=== PATIENT | female | born 1965 | race Caucasian/White ===

== ENCOUNTER 2024-02-28 09:34 | Emergency (ER) | payer MEDICARE, OTHER ==
[~2024-02-28] VITALS: Ht 170.2 cm; Wt 59.0 kg
[2024-02-28 10:26] VITALS: BP 153/94; PULSE 83; RESP 17; TEMP 97.5; O2SAT 97
[2024-02-28] MEDS: KETOROLAC TROMETH 30 MG/ML 1ML VIAL IM ONE (11:15)
[2024-02-28] MEDS: TETANUS-DIPTH-ACEL PERTUSSIS 0.5ML SYR Tdap IM ONE (11:15)
[2024-02-28] MEDS ORDERED: IBUP-1454 PO (11:51)
== END 2024-02-28 11:57 | disposition home or self-care (01) ==
LOC: ER 09:34 → EDBD 09:34 → ER 11:56
DX: S91.302A Unspecified open wound, left foot, initial encounter (principal); Z88.8 Allergy status to other drugs, medicaments and biological substances; Z88.0 Allergy status to penicillin; W22.8XXA Striking against or struck by other objects, initial encounter; Y93.89 Activity, other specified; Y92.89 Other specified places as the place of occurrence of the external cause; Y99.8 Other external cause status
CPT/HCPCS: 73630; 90471; 90715; 96372; 99284; J1885

== ENCOUNTER 2024-07-13 01:08 | Emergency (ER) | payer MEDICARE ==
[~2024-07-13] VITALS: Ht 170.2 cm; Wt 69.0 kg
[~2024-07-13 01:08] MED LIST: IBUP-1454 PO
[2024-07-13] MEDS: HYDROcodone-ACET 5/325MG TAB PO ONE (01:57)
--- NOTE | 2024-07-13 01:59 | ED.PDOC ---
Back pain HPI HPI Comments THIS IS A 59-YEAR-OLD FEMALE PRESENTS TO THE ED CHIEF COMPLAINT RIGHT FOOT PAIN. PATIENT STATES AROUND 2 DAYS AGO SHE WAS IN [place] WALKING DOWN THE STAIRS GOT A RIGHT FOOT JAMMED IN BETWEEN THE CONCRETE STAIR AND FELT A CRACK IN HER RIGHT FOOT LATERAL ASPECT. PATIENT REPORTS FOLLOW UP AT URGENT CARE, NO IMAGING DONE BECAUSE NO IMAGING CAPABILITIES AT THAT TIME WAS TOLD TO FOLLOW UP FOR IMAGING. SHE IS COMPLAINING OF PRESSURE TYPE PAIN SHARP IN NATURE WORSE WITH WEIGHT- BEARING 8/10 ON PAIN SCALE. SHE DENIES ANY NUMBNESS OR WEAKNESS, OR ANY OTHER KNOWN INJURY AT THIS TIME. Chief Complaint: Lower Extremity Time Seen by MD: 01:09 Primary Care Provider: NONE Reviewed Notes: Nurses Notes, Medications, Allergies Allergies: Coded Allergies: Diphenhydramine (Verified Allergy, Unknown, 02/28/24) Penicillins (Verified Allergy, Unknown, 02/28/24) Home Meds Active Scripts Ibuprofen (Ibuprofen) 600 Mg Tab, 1 TAB PO TIDP PRN for 14 Days, #42 TAB 0 Refills Prov:MILLERRONEL RN INTERVENTIONAL 02/28/24 Information Source: Patient Mode of Arrival: Ambulatory Past Medical History PAST MEDICAL HISTORY: Denies Surgical History: Denies all surgeries HOSPITAL CLINIC ASSISTANT History: No Pertinent HOSPITAL CLINIC ASSISTANT History Family History Family History: Reviewed,noncontributory to illness, No family hx of Cancer, No family hx of DM, No family hx of Heart bong, No family hx of HTN, No family hx ofKidney bong, No family hx of Liver bong, No family hx of Lung bong, No family hx of Stroke Social History Smoker: Non-Smoker Alcohol: Denies ETOH Use Drugs: Denies Drug Use Constitutional: denies: chills, diaphoresis, fatigue, fever, malaise, sweats, weakness, others EENTM: denies: blurred vision, double vision, ear bleeding, ear discharge, ear drainage, ear pain, ear ringing, eye pain, eye redness, hearing loss, mouth pain, mouth swelling, nasal discharge, nose bleeding, nose congestion, nose pain, photophobia, tearing, throat pain, throat swelling, voice changes, others Respiratory: denies: cough, hemoptysis, orthopnea, SOB at rest, shortness of breath, SOB with excertion, stridor, wheezing, others Cardiovascular: denies: chest pain, dizzy spells, diaphoresis, Dyspnea on exertion, edema, irregular heart beat, left arm pain, lightheadedness, palpitations, PND, syncope, others Gastrointestinal: denies: abdomen distended, abdominal pain, blood streaked bowels, constipated, diarrhea, dysphagia, difficulty swallowing, hematemesis, melena, nausea, poor appetite, poor fluid intake, rectal bleeding, rectal pain, vomiting, others Genitourinary: denies: abnormal vagina bleeding, burning, dyspareunia, dysuria, flank pain, frequency, hematuria, incontinence, pain, , vagina discharge, urgency, others Neurological: denies: dizziness, fainting, headache, left sided numbness, left sided weakness, numbness, paresthesia, pre-existing deficit, right sided numbness, right sided weakness, seizure, speech problems, tingling, tremors, weakness, others Musculoskeletal: reports: others (RIGHT FOOT PAIN); denies: back pain, gout, joint pain, joint swelling, muscle pain, muscle stiffness, neck pain Integumetry: denies: bruises, change in color, change in hair/nails, dryness, laceration, lesions, lumps, rash, wounds, others Allergic/Immunocompromised: denies: Difficulty Healing, Frequent Infections, Hives, Itching, others Hematologic/Lymphatic: denies: anemia, blood clots, easy bleeding, easy bruising, swollen glands, others Endocrine: denies: excessive hunger, excessive sweating, excessive thirst, excessive urination, flushing, intolerance to cold, intolerance to heat, unexplained weight gain, unexplained weight loss, others Psychiatric: denies: anxiety, bipolar disorder, depression, hopeless, panic disorder, schizophrenia, sleepless, suicidal, others Physical Exam General Appearance: No Apparent Distress, Normal HEENT: Pharynx Normal Neck: Full Range of Motion, Non-Tender Respiratory: Lungs Clear, No Respiratory Distress, Normal Breath Sounds Cardiovascular: No Murmur, Normal Peripheral Pulses, Regular Rate/Rhythm Breast Exam: Deferred Gastrointestinal: Non Tender, Soft Genitalia: Deferred Pelvic: Deferred Rectal: Deferred Extremities: Normal capillary refill, Normal inspection, Normal range of motion, Non-tender, No pedal edema Musculoskeletal : Location: Right Extremity Location: Foot (MODERATE TENDERNESS PALPATED OVER DORSAL LATERAL ASPECT WITH NOTED EDEMA TRACE ECCHYMOSIS FELT LACERATIONS OR ABRASIONS OR OPEN LESIONS. POSITIVE PEDAL PULSE STRENGTH SENSORY AND MOTION INTACT. NO NOTED DEFORMITY OR BONE PROMINENCE.) Apperance: Normal Neurologic: Alert, design studio consultant II-XII nml as Tested, No Motor Deficits, Normal Affect, Normal Mood, No Sensory Deficits Cerebellar Function: Normal Reflexes: Normal Skin: Dry, Normal Color, Warm Lymphatic: No Adenopathy Was a procedure done? Was a procedure done?: No Back Pain Differential Dx Differential Diagnosis: Fracture, Musculoskeletal Pain X-Ray, Labs, Meds, VS Vital Signs Date Time Temp Pulse Resp B/P (MAP) Pulse Ox O2 Delivery O2 Flow Rate FiO2 07/13/24 02:56 97.5 81 17 135/81 (99) 96 97.5 07/13/24 02:56 81 17 96 Room Air 07/13/24 01:16 97.5 95 16 158/81 (106) 98 Current Medications Medications (Trade) Dose Ordered Sig/Tra Route Start Time Stop Time Status Last Admin Acetaminophen/ Hydrocodone Bitart ([place] 5/325MG Tab) 1 tab ONCE ONCE PO 07/13/24 02:00 07/13/24 02:01 DC 07/13/24 01:57 X-Ray, Labs, Meds, VS Comment PATIENT GIVEN NORCO 5 MG FOR THE PAIN. RIGHT FOOT X-RAY SHOWS Linear non-displaced fracture involving the base of the 5th metatarsal, with mild associated soft tissue edema. PATIENT PLACED IN POSTERIOR FOOT SPLINT. TOLERATED WELL POSITIVE CSM ON RE-E XAMINATION. INFORMATION GIVEN FOR ORTHO FOOT [facility] FOR FOLLOW UP. SCRIPT IBUPROFEN 800 MG 1 TAB T.I.D. P.R.N. PAIN SWELLING. ADVISED ON RICE. ADVISED TO GET A SCOOTER CRUTCHES GIVEN ADVISED NO WEIGHT-BEARING. ER RETURN PRECAUTIONS GIVEN PATIENT INDICATED UNDERSTANDING, AGREES WITH DISCHARGE PLAN OF CARE. Time of 1ST Reevaluation: 04: Reevaluation 1ST: Improved Patient Education/Counseling: Diagnosis, Treatment, Prognosis, Need For Follow Up Family Education/Counseling: Diagnosis, Treatment, Prognosis, Need For Follow Up Departure 1 Departure Time of Disposition: 04:22 Impression: Primary Impression: Fracture of fifth metatarsal bone of right foot Qualified Codes: S92.354A - Nondisplaced fracture of fifth metatarsal bone, right foot, initial encounter for closed fracture Disposition: HOME / SELF CARE / HOMELESS Condition: Stable e-Prescriptions Ibuprofen (Ibuprofen) 800 Mg Tab 1 TAB PO TID PRN for 7 Days, #21 TAB 1 Refill Prov: ASHLEY MARLEY 07/13/24 Discharged With: Friend Critical Care Note Critical Care Time?: No Stability Stability form required: ASHLEY Kumar Jul 13, 2024 01:59
[2024-07-13 02:56] VITALS: BP 135/81; PULSE 81; RESP 17; TEMP 97.5; O2SAT 96
--- NOTE | 2024-07-13 03:52 | DVH ---
Examination: RFOOT Clinical Indication: INJURY/PAIN/SWELLING LATERAL ASPECT Comparison: None. Technique: AP, lateral and oblique views of the right foot. Findings: Linear non-displaced fracture involving the base of the 5th metatarsal, with mild associated soft tis danae edema. No other acute osseous abnormality or focal osseous lesion. There is no evidence of dislocation or osseous lesion. The sesamoid complex is well approximated. T he joint spaces appear preserved. Tarsal bones are well aligned. Impression: 1. Linear non-displaced fracture involving the base of the 5th metatarsal, with mild associated soft tissue edema. 2. No other acute osseous abnormality or focal osseous lesion. Electronically Signed 07/13/2024 03:43 Jose Quintero
[2024-07-13] MEDS ORDERED: IBUP-1456 PO (04:23)
== END 2024-07-13 04:48 | disposition home or self-care (01) ==
LOC: ER 01:08
DX: S92.354A Nondisplaced fracture of fifth metatarsal bone, right foot, initial encounter for closed fracture (principal); Z88.0 Allergy status to penicillin; Z88.6 Allergy status to analgesic agent; X58.XXXA Exposure to other specified factors, initial encounter; Y93.89 Activity, other specified; Y92.89 Other specified places as the place of occurrence of the external cause; Y99.8 Other external cause status
CPT/HCPCS: 29515; 73630

== ENCOUNTER 2024-07-24 15:41 | Emergency (ER) | payer MEDICARE ==
[~2024-07-24] VITALS: Ht 170.2 cm; Wt 78.0 kg
[~2024-07-24 15:41] MED LIST changes: -IBUP-1454 PO; +IBUP-1456 PO
[2024-07-24 15:58] VITALS: BP 171/105; PULSE 107; RESP 18; TEMP 97.4; O2SAT 97
[2024-07-24] MEDS ORDERED: HYDROcodone-ACET 5/325MG TAB PO ONE (16:15)
--- NOTE | 2024-07-24 16:15 | ED.PDOC ---
Back pain HPI HPI Comments right foot pain Chief Complaint: Lower Extremity Comments pt has a Mike's fracture from before . she sees ortho in AM, but fell again and injured same foot this morning Time Seen by MD: 15:51 Primary Care Provider: NONE Reviewed Notes: Nurses Notes Allergies: Coded Allergies: Diphenhydramine (Verified Allergy, Unknown, 02/28/24) Penicillins (Verified Allergy, Unknown, 02/28/24) Home Meds Active Scripts Ibuprofen (Ibuprofen) 800 Mg Tab, 1 TAB PO TID PRN for 7 Days, #21 TAB 1 Refill Prov:ASHLEY MARLEY MUSICAL THERAPIST 07/13/24 Information Source: Patient, Relative (Mother) Mode of Arrival: Ambulatory Timing: Days (1) Duration: Since onset Severity: Mild Prehospital treatment: Other (splint) Onset: Fall History of: Other (recent Mike's fracture) Modifying Factors: Movement, Walking Past Medical History Past Medical History (Other): mike's fracture of right foot Surgical History: Denies all surgeries CAR CHASER History: No Pertinent CAR CHASER History Family History Family History: Reviewed,noncontributory to illness, No family hx of Cancer, No family hx of DM, No family hx of Heart bong, No family hx of HTN, No family hx ofKidney bong, No family hx of Liver bong, No family hx of Lung bong, No family hx of Stroke Social History Smoker: Non-Smoker Alcohol: Denies ETOH Use Drugs: Denies Drug Use Constitutional: denies: chills, diaphoresis, fatigue, fever, malaise, sweats, weakness, others EENTM: denies: blurred vision, double vision, ear bleeding, ear discharge, ear drainage, ear pain, ear ringing, eye pain, eye redness, hearing loss, mouth pain, mouth swelling, nasal discharge, nose bleeding, nose congestion, nose pain, photophobia, tearing, throat pain, throat swelling, voice changes, others Respiratory: denies: cough, hemoptysis, orthopnea, SOB at rest, shortness of breath, SOB with excertion, stridor, wheezing, others Cardiovascular: denies: chest pain, dizzy spells, diaphoresis, Dyspnea on exertion, edema, irregular heart beat, left arm pain, lightheadedness, palpitations, PND, syncope, others Gastrointestinal: denies: abdomen distended, abdominal pain, blood streaked bowels, constipated, diarrhea, dysphagia, difficulty swallowing, hematemesis, melena, nausea, poor appetite, poor fluid intake, rectal bleeding, rectal pain, vomiting, others Genitourinary: denies: abnormal vagina bleeding, burning, dyspareunia, dysuria, flank pain, frequency, hematuria, incontinence, pain, , vagina discharge, urgency, others Neurological: denies: dizziness, fainting, headache, left sided numbness, left sided weakness, numbness, paresthesia, pre-existing deficit, right sided numbness, right sided weakness, seizure, speech problems, tingling, tremors, weakness, others Musculoskeletal: reports: joint pain, joint swelling; denies: back pain, gout, muscle pain, muscle stiffness, neck pain, others Integumetry: denies: bruises, change in color, change in hair/nails, dryness, laceration, lesions, lumps, rash, wounds, others Allergic/Immunocompromised: denies: Difficulty Healing, Frequent Infections, Hives, Itching, others Hematologic/Lymphatic: denies: anemia, blood clots, easy bleeding, easy bruising, swollen glands, others Endocrine: denies: excessive hunger, excessive sweating, excessive thirst, excessive urination, flushing, intolerance to cold, intolerance to heat, unexplained weight gain, unexplained weight loss, others Psychiatric: denies: anxiety, bipolar disorder, depression, hopeless, panic disorder, schizophrenia, sleepless, suicidal, others All Other Systems: Reviewed and Negative Physical Exam General Appearance: No Apparent Distress, Normal HEENT: Normal ENT Inspection, Pharynx Normal, TMs Normal Neck: Full Range of Motion, Non-Tender, Normal, Normal Inspection Respiratory: Chest Non-Tender, Lungs Clear, No Accessory Muscle Use, No Respiratory Distress, Normal Breath Sounds Cardiovascular: No Edema, No JVD, No Murmur, No Gallop, Normal Peripheral Pulses, Regular Rate/Rhythm Breast Exam: Deferred Gastrointestinal: No Organomegaly, Non Tender, No Pulsatile Mass, Normal Bowel Sounds, Soft Genitalia: Deferred Pelvic: Deferred Rectal: Deferred Extremities: No calf tenderness, Normal capillary refill, Normal inspection, Normal range of motion, No pedal edema, Swelling (right leg, foot), Tender Musculoskeletal : Apperance: Normal Neurologic: Abnormal Gait (with crutches), Alert, inweaver II-XII nml as Tested, No Motor Deficits, Normal Affect, Normal Mood, No Sensory Deficits Cerebellar Function: Normal Reflexes: Normal Skin: Dry, Normal Color, Warm Lymphatic: No Adenopathy Was a procedure done? Was a procedure done?: No Back Pain Differential Dx Differential Diagnosis: Fracture, Musculoskeletal Pain, Strain, Other (dislocation, contusion, bruising ) X-Ray, Labs, Meds, VS Vital Signs Date Time Temp Pulse Resp B/P (MAP) Pulse Ox O2 Delivery O2 Flow Rate FiO2 07/24/24 15:58 97.4 107 18 171/105 (127) 97 97.4 07/24/24 15:58 97.4 107 18 171/105 (127) [address] [address] Ph: [phone] DIAGNOSTIC IMAGING Diagnostic Imaging Report : [id number] Signed PATIENT: FRANCISCO MACIEL ACCT: [id number] UNIT: [id number] : 1965 LOC: ER ROOM / BED: / AGE / SEX: 59 / F ADM STATUS: REG ER SERVICE 1612 ORDERING PHYSICIAN: PIEDAD PERES MD PROCEDURE(s): RTBFB - R TIB FIB XRAY REASON: injury ORDER NUMBER(s): [id number], ACCESSION NUMBER(s): [id number] EXAM: XY R TIB FIB XRAY CLINICAL HISTORY: injury COMPARISON: XY R FOOT 3 VIEW XRAY on DOS: 07/13/24 TECHNIQUE: XY R TIB FIB XRAY Findings/Impression: 2 views of the right tibia and fibula. Nondisplaced fracture of the proximal aspect of the 5th metatarsal. There is no evidence of dislocation, blastic, or lytic lesions. No radiopaque foreign bodies. No superficial soft tissue abnormalities. ATED BY: LACHELLE IRVING DO DICTATED DATE/TIME: 07/24/241755 SIGNED BY: LACHELLE IRVING DO SIGNED DATE/TIME: 07/24/241755 CC: [address] [address] Ph: [phone] DIAGNOSTIC IMAGING Diagnostic Imaging Report : [id number] Signed PATIENT: FRANCISCO MACIEL ACCT: [id number] UNIT: [id number] : 1965 LOC: ER ROOM / BED: / AGE / SEX: 59 / F ADM STATUS: REG ER SERVICE 1612 ORDERING PHYSICIAN: PIEDAD PERSE MD PROCEDURE(s): RFOOT - R FOOT 3 VIEW XRAY REASON: injury ORDER NUMBER(s): [id number], ACCESSION NUMBER(s): [id number] EXAM: XY R FOOT 3 VIEW XRAY CLINICAL HISTORY: injury COMPARISON: XY R FOOT 3 VIEW XRAY on DOS: 07/13/24, XY L FOOT 3 VIEW XRAY on DOS: 02/28/24 TECHNIQUE: XY R FOOT 3 VIEW XRAY Findings/Impression: 3 views of the right foot. Suboptimal visualization of the fine osseous and soft tissue details due to the overlying fibrous splint. Nondisplaced fracture of the proximal aspect of the 5th metatarsal. Mild soft tissue edema. There is no evidence of dislocation, blastic, or lytic lesions. No radiopaque foreign bodies. ATED BY: LACHELLE IRVING DO DICTATED DATE/TIME: 07/24/241754 SIGNED BY: LACHELLE IRVING DO SIGNED DATE/TIME: 07/24/241754 CC: Time of 1ST Reevaluation: 16:21 Reevaluation 1ST: Unchanged Patient Education/Counseling: Diagnosis, Treatment Family Education/Counseling: No Family Present Additional Information pt has a known mike's fracture. she reinjured it, but there are no new fracture s. pt is scheduled to see ortho in AM. she has a splint on Departure 1 Departure Time of Disposition: 20:40 Impression: Primary Impression: Fracture of fifth metatarsal bone of right foot Qualified Codes: S92.354D - Nondisplaced fracture of fifth metatarsal bone, right foot, subsequent encounter for fracture with routine healing Disposition: 01 HOME / SELF CARE / HOMELESS Condition: Stable Additional Instructions: elevate, ice, follow up with ortho in AM as scheduled Discharged With: Self, Relative (Mother) Critical Care Note Critical Care Time?: No Stability Stability form required: No Heart Score Heart Score: Heart Score Response (Comments) Value History N/A 0 EKG N/A 0 Age N/A 0 Risk Factors N/A 0 Troponin N/A 0 Total 0 I personally scribed for PIEDAD PERES MD ([email or web address]) on 07/24/24 at 20:07. Electronically submitted by Wagner Krueger ([email or web address]). PIEDAD PERES MD Jul 24, 2024 16:15
--- NOTE | 2024-07-24 17:57 | DVH ---
EXAM: XY R FOOT 3 VIEW XRAY CLINICAL HISTORY: injury COMPARISON: XY R FOOT 3 VIEW XRAY on DOS: 07/13/24, XY L FOOT 3 VIEW XRAY on DOS: 02/28/24 TECHNIQUE: XY R FOOT 3 VIEW XRAY Findings/Impression: 3 views of the right foot. Suboptimal visualization of the fine osseous and soft tissue details due to the overlying fibrous spl int. Nondisplaced fracture of the proximal aspect of the 5th metatarsal. Mild soft tissue edema. There is no evidence of dislocation, blastic, or lytic lesions. No radiopaque foreign bodies.
--- NOTE | 2024-07-24 17:58 | DVH ---
EXAM: XY R TIB FIB XRAY CLINICAL HISTORY: injury COMPARISON: XY R FOOT 3 VIEW XRAY on DOS: 07/13/24 TECHNIQUE: XY R TIB FIB XRAY Findings/Impression: 2 views of the right tibia and fibula. Nondisplaced fracture of the proximal aspect of the 5th metatarsal. There is no evidence of dislocation, blastic, or lytic lesions. No radiopaque foreign bodies. No superficial soft tissue abnormalities.
== END 2024-07-24 21:35 | disposition home or self-care (01) ==
LOC: ER 15:41
DX: S92.354D Nondisplaced fracture of fifth metatarsal bone, right foot, subsequent encounter for fracture with routine healing (principal); Z88.0 Allergy status to penicillin; W18.39XD Other fall on same level, subsequent encounter
CPT/HCPCS: 73590; 73630

== ENCOUNTER 2024-08-26 07:40 | Day surgery (SDC) | payer MEDICARE ==
[2024-08-22 12:34] LABS: Basophils # (auto) 0.1 10 ^3/uL (0-0.2); Basophils % (auto) 0.7 % (0.0-2.0); Eosinophils # (auto) 0.2 10 ^3/uL (0-0.8); Eosinophils % (auto) 2.4 % (0.0-7.0); Hematocrit 43.4 % (36.0-46.0); Hemoglobin 14.3 g/dL (12.2-16.2); Lymphocytes # (auto) 1.7 10 ^3/uL (0.4-5.4); Lymphocytes % (auto) 21.6 % (10.0-50.0); Mean Corpuscular Hemoglobin 29.8 pg (28.0-32.0); Mean Corpuscular Hgb Conc. 32.9 g/dL (32.0-36.0); Mean Corpuscular Volume 90.7 fL (80.0-100.0); Monocytes # (auto) 0.7 10 ^3/uL (0-1.3); Monocytes % (auto) 9.1 % (0.0-12.0); Neutrophils # (auto) 5.1 10 ^3/uL (1.6-8.6); Neutrophils % (auto) 66.2 % (37.0-80.0); Platelet Count (auto) 332 10^3/uL (140-450); Red Blood Cells 4.78 10^6/uL (4.0-5.20); Red Cell Distribution Width 14.3 % (11.8-14.3); White Blood Cell 7.7 10^3/uL (4.4-10.8)
[2024-08-22 12:59] LABS: INR 0.97 (0.9-1.15); Partial Thromboplastin Time 25.9 SEC (24.5-34.5); Prothrombin Time 10.3 sec (9.3-11.8)
[2024-08-22 13:23] LABS: Urine Bacteria FEW /hpf (None Seen); Urine Blood Negative /uL (Negative); Urine Clarity Clear (Clear); Urine Color Yellow (Yellow); Urine Hyaline Cast FEW /lpf (0 - 2); Urine Mucus FEW (None Seen); Urine Protein, UAD Negative (Negative); Urine Specific Gravity 1.025 (1.001-1.035); Urine Squamous Epithelial Cell FEW /hpf (<5); Urine Urobilinogen Normal (Negative); Urine WBC 1 /hpf (0 - 5)
[2024-08-22 13:39] LABS: Alanine Aminotransferase 20 U/L (7-40); Albumin 4.4 g/dL (3.2-4.8); Anion Gap 6 (5-15); Aspartate Aminotransferase 19 U/L (13-40); BUN/Creatinine Ratio 21.1 (10.0-20.0); Bilirubin, Total 0.4 mg/dL (0.2-1.0); Carbon Dioxide 30 mmol/L (20-31); Chloride 107 mmol/L (98-107); Glucose 90 mg/dL (74-106); Potassium 4.2 mmol/L (3.5-5.1); Sodium 143 mmol/L (136-145)
[2024-08-22 13:42] LABS: Alkaline Phosphatase 143 U/L (46-116); Blood Urea Nitrogen 23 mg/dL (9-23); Calcium 10.6 mg/dL (8.7-10.4)
[~2024-08-26] VITALS: Ht 170.2 cm; Wt 63.5 kg
[2024-08-26] MEDS ORDERED: CLINDAMYCIN 600MG IV 50 ML IV ONE (09:09)
[2024-08-26] MEDS ORDERED: fentaNYL CITRATE 100 MCG/2 ML VL ONE (09:20)
[2024-08-26] MEDS ORDERED: MEPERIDINE HCL (25 MG/ML) 1ML VIAL ONE (09:21)
[2024-08-26] MEDS ORDERED: MIDAZOLAM HCL 2MG/2ML 2ml VIAL (1mg/ml) ONE (09:21)
[2024-08-26] MEDS ORDERED: DexAMETHasone SOD PHOS 10MG/1ML VIAL INJ ONE (09:24)
[2024-08-26] MEDS ORDERED: PROPOFOL 10 MG/ML 20 ML IV ONE (09:30)
[2024-08-26] MEDS: BUPIVACAINE 0.5% P/F INJ 10 ML VIAL ONE (09:35)
[2024-08-26 10:05] VITALS: PULSE 55; RESP 12; TEMP 97.3; O2SAT 96
--- NOTE | 2024-08-26 10:12 | DVHOP2 ---
Operative Report - 2 Report Details Date: 08/26/24 Preop Diagnosis: 1. Right foot smith fracture Postop Diagnosis: Right foot smith fracture Surgeon: Houston Ribeiro MD Anesthesiologist: See anesthesia Anesthesia: Mac Implant: Arthrex 5.5 x 40 mm solid screw Consent: The patient was informed of the risks and benefits of the procedure. These include but are not limited to complications of anesthesia, postoperative infection, incomplete relief of symptoms, recurrence of symptoms, damage to blood vessels, nerves and tendons, deep venous thrombosis, pulmonary embolism and possible need for repeat surgery in the future. Complications: None Estimated Blood Loss: Minimal Fluids: See anesthesia Findings: Consistent with diagnosis Indications for Surgery: Right foot Smith fracture Name of Procedure Performed 1. Right foot fifth ORIF ([id number]) Procedure Details Procedure Details: PRE-PROCEDURE INFORMATION: In the pre-op holding area, the extremity to be operated on was clearly marked and the patient verified correct laterality of the marking. The patient was transferred to the OR table and placed in a supine position. A timeout was performed in which identification of the correct patient, procedure, location, and materials was done. The right foot and leg were prepped and draped in normal sterile fashion. The foot and leg were exsanguinated and the thigh tourniquet was inflated to 250 mmHg. DESCRIPTION OF PROCEDURE: Attention was directed to the right lateral foot where a stab incision was made approximately 3 cm in the base of the 5th metatarsal. The incision was deepened through blunt and sharp dissection. Care was taken throughout the dissection to avoid damage to neurovascular and tendinous structures. Hemostasis was achieved via electrocautery. Incision was deepened to the level of the periosteum. A K-wire was placed from the base of the metatarsal to the shaft of the bone, across fracture fragment. A drill was then used over the K-wire pass the fracture site. Using a 5.5 cannulated tap, the 5th metatarsal was then tapped past the fracture line. A 5.5 partially- threaded solid screw was then placed into the 5th metatarsal so as the threads were just past the fracture line. It was noted on fluoroscopy that there was maintain good and adequate position of the fracture fragment and the fracture was adequately reduced. All surgical wounds were irrigated copiously with saline and closed in layers wi th the aforementioned suture material. A dry sterile dressing was placed on the surgical extremity. The patient was placed in a cam boot POSTOPERATIVE INFORMATION: The patient tolerated the above noted procedure and anesthesia well and was transferred to the PACU with vital signs stable, and vascular status intact with capillary refill intact to all digits. Postoperative instructions reviewed in detail with the patient with written instructions provided. Patient will return to clinic in approximately 10-14 days for first postoperative visit. Patient has the number of the clinic and was instructed to call prior to that time should any problems, questions, or concerns arise. Condition Good Disposition Home HOUSTON RIBEIRO DPM Aug 26, 2024 10:12
[2024-08-26 10:20] VITALS: PULSE 57; RESP 12; O2SAT 99
[2024-08-26] MEDS ORDERED: ePHEDrine SULFATE 50 MG/ML AMP IV PRN (10:30)
[2024-08-26] MEDS ORDERED: hydrALAZINE HCL 20 MG/ML VL IV PRN (10:30)
[2024-08-26] MEDS ORDERED: MIDAZOLAM HCL 2MG/2ML 2ml VIAL (1mg/ml) IV PRN (10:30)
[2024-08-26] MEDS ORDERED: MORPHINE SULFATE 4 MG/ML SYR/VIAL IV PRN (10:30)
[2024-08-26] MEDS ORDERED: ONDANSETRON HCL 4 MG/2 ML VIAL IV ONE (10:30)
[2024-08-26] MEDS ORDERED: HYDROmorphone HCL 2 MG/ML VL/or syr ONE (10:42)
[2024-08-26] MEDS: HYDROmorphone HCL 2 MG/ML VL/or syr IV PRN (10:42)
[2024-08-26 11:15] VITALS: BP 108/68; PULSE 52; RESP 12; O2SAT 99
== END 2024-08-26 11:25 | disposition home or self-care (01) ==
LOC: SUR 07:40
PROVIDERS: ATTEND Podiatrist
DX: S92.351A Displaced fracture of fifth metatarsal bone, right foot, initial encounter for closed fracture (principal); I10 Essential (primary) hypertension; G89.29 Other chronic pain; Z87.891 Personal history of nicotine dependence; Z79.899 Other long term (current) drug therapy; Z90.710 Acquired absence of both cervix and uterus; X58.XXXA Exposure to other specified factors, initial encounter; Y93.89 Activity, other specified; Y92.89 Other specified places as the place of occurrence of the external cause; Y99.8 Other external cause status
CPT/HCPCS: 28485; 36415; 80053; 81001; 85025; 85610; 85730; C1713; J1100; J1171; J2175; J2250; J2704; J3010; J3490

== ENCOUNTER 2024-12-04 08:44 | Day surgery (SDC) | payer MEDICARE ==
[2024-12-02 12:42] LABS: Urine Bacteria None Seen /hpf (None Seen)
[2024-12-02 12:45] LABS: Basophils # (auto) 0.1 10 ^3/uL (0-0.2); Basophils % (auto) 0.8 % (0.0-2.0); Eosinophils # (auto) 0.2 10 ^3/uL (0-0.8); Eosinophils % (auto) 2.8 % (0.0-7.0); Hematocrit 41.4 % (36.0-46.0); Hemoglobin 13.8 g/dL (12.2-16.2); Lymphocytes # (auto) 2.1 10 ^3/uL (0.4-5.4); Lymphocytes % (auto) 28.2 % (10.0-50.0); Mean Corpuscular Hemoglobin 29.6 pg (28.0-32.0); Mean Corpuscular Hgb Conc. 33.4 g/dL (32.0-36.0); Mean Corpuscular Volume 88.7 fL (80.0-100.0); Monocytes # (auto) 0.7 10 ^3/uL (0-1.3); Monocytes % (auto) 9.8 % (0.0-12.0); Neutrophils # (auto) 4.3 10 ^3/uL (1.6-8.6); Neutrophils % (auto) 58.4 % (37.0-80.0); Platelet Count (auto) 292 10^3/uL (140-450); Red Blood Cells 4.66 10^6/uL (4.0-5.20); Red Cell Distribution Width 14.1 % (11.8-14.3); White Blood Cell 7.3 10^3/uL (4.4-10.8)
[2024-12-02 12:58] LABS: Urine Blood Negative /uL (Negative); Urine Clarity Clear (Clear); Urine Color Yellow (Yellow); Urine Protein, UAD Negative (Negative); Urine Specific Gravity 1.028 (1.001-1.035); Urine Squamous Epithelial Cell FEW /hpf (<5); Urine Urobilinogen 2 mg/dL (Negative); Urine WBC 1 /HPF (0-5); Urine pH 6.5 (5.0-9.0)
[2024-12-02 13:00] LABS: INR 0.97 (0.9-1.15); Partial Thromboplastin Time 26.3 SEC (24.5-34.5); Prothrombin Time 10.3 sec (9.3-11.8)
[2024-12-02 13:05] LABS: Alanine Aminotransferase 22 U/L (7-40); Albumin 4.7 g/dL (3.2-4.8); Anion Gap 6 (5-15); Aspartate Aminotransferase 21 U/L (13-40); BUN/Creatinine Ratio 24.3 (10.0-20.0); Calcium 10.3 mg/dL (8.7-10.4); Carbon Dioxide 31 mmol/L (20-31); Chloride 105 mmol/L (98-107); Glucose 74 mg/dL (74-106); Potassium 4.5 mmol/L (3.5-5.1); Sodium 142 mmol/L (136-145); Total Protein 7.3 g/dL (5.7-8.2)
[2024-12-02 13:06] LABS: Alkaline Phosphatase 157 U/L (46-116); Bilirubin, Total 0.5 mg/dL (0.2-1.0); Blood Urea Nitrogen 26 mg/dL (9-23)
[~2024-12-04] VITALS: Ht 170.2 cm; Wt 69.9 kg
[~2024-12-04 08:44] MED LIST changes: -IBUP-1456 PO; +OXY5T PO
[2024-12-04 09:27] VITALS: TEMP 97.3
[2024-12-04] MEDS ORDERED: fentaNYL CITRATE 100 MCG/2 ML VL ONE ×2 (09:44→10:29)
[2024-12-04] MEDS ORDERED: NALOXONE HCL 0.4 MG/ML VIAL IV PRN (09:45)
[2024-12-04] MEDS ORDERED: HYDROmorphone HCL 2 MG/ML VL/or syr IV PRN (09:45)
[2024-12-04] MEDS ORDERED: ePHEDrine SULFATE 50 MG/ML AMP IV PRN (09:45)
[2024-12-04] MEDS ORDERED: MIDAZOLAM HCL 2MG/2ML 2ml VIAL (1mg/ml) ONE (09:45)
[2024-12-04] MEDS ORDERED: ONDANSETRON HCL 4 MG/2 ML VIAL IV ONE (09:45)
[2024-12-04] MEDS ORDERED: METOCLOPRAMIDE HCL 5MG/ml INJ 2ml VIAL IV ONE (09:45)
[2024-12-04] MEDS ORDERED: hydrALAZINE HCL 20 MG/ML VL IV PRN (09:45)
[2024-12-04] MEDS ORDERED: PROPOFOL 10 MG/ML 20 ML IV ONE ×2 (09:54→10:27)
[2024-12-04] MEDS ORDERED: LIDOCAINE 2% (LOCAL ANESTH.) PF 5ml SDV ONE (09:54)
--- NOTE | 2024-12-04 09:55 | DVHOP2 ---
Operative Report - 2 Report Details Date: 12/04/24 Preop Diagnosis: 1. Left foot 5th metatarsal fracture 2. Left foot pain Postop Diagnosis: 5th metatarsal fracture Surgeon: Houston Ribeiro MD Anesthesiologist: See anesthesia Anesthesia: General Implant: Arthrex 5.5 x 40mm screw Consent: The patient was informed of the risks and benefits of the procedure. These include but are not limited to complications of anesthesia, postoperative infection, incomplete relief of symptoms, recurrence of symptoms, damage to blood vessels, nerves and tendons, deep venous thrombosis, pulmonary embolism and possible need for repeat surgery in the future. Complications: None Estimated Blood Loss: Minimal Fluids: See anesthesia Findings: Consistent with the diagnosis Indications for Surgery: Worsening left foot pain and acute fracture Name of Procedure Performed 1. Left foot 5th metatarsal ORIF ([id number]) Procedure Details Procedure Details: PRE-PROCEDURE INFORMATION: In the pre-op holding area, the extremity to be operated on was clearly marked and the patient verified correct laterality of the marking. The patient was transferred to the OR table and placed in a supine position. A timeout was performed in which identification of the correct patient, procedure, location, and materials was done. The right foot and leg were prepped and draped in normal sterile fashion. The foot and leg were exsanguinated and the thigh tourniquet was inflated to 250 mmHg. DESCRIPTION OF PROCEDURE: Attention was directed to the left lateral foot where a stab incision was made approximately 3 cm in the base of the 5th metatarsal. The incision was deepened through blunt and sharp dissection. Care was taken throughout the dissection to avoid damage to neurovascular and tendinous structures. Hemostasis was achieved via electrocautery. Incision was deepened to the level of the periosteum. A K-wire was placed from the base of the metatarsal to the shaft of the bone, across fracture fragment. A drill was then used over the K-wire pass the fracture site. Using a 5.5 cannulated tap, the 5th metatarsal was then tapped past the fracture line. A 5.5 partially-threaded solid screw was then placed into the 5th metatarsal so as the threads were just past the fracture line. It was noted on fluoroscopy that there was maintain good and adequate position of the fracture fragment and the fracture was adequately reduced. All surgical wounds were irrigated copiously with saline and closed in layers with the aforementioned suture material. A dry sterile dressing was placed on t he surgical extremity. The patient was placed in a cam boot POSTOPERATIVE INFORMATION: The patient tolerated the above noted procedure and anesthesia well and was transferred to the PACU with vital signs stable, and vascular status intact with capillary refill intact to all digits. Postoperative instructions reviewed in detail with the patient with written instructions provided. Patient will return to clinic in approximately 10-14 days for first postoperative visit. Patient has the number of the clinic and was instructed to call prior to that time should any problems, questions, or concerns arise. Condition Good Disposition Home HOUSTON RIBEIRO DPM Dec 04, 2024 09:55
[2024-12-04] MEDS ORDERED: CLINDAMYCIN 600MG IV 50 ML IV ONE (09:56)
[2024-12-04] MEDS: BUPIVACAINE HCL 0.25% P/F 10 ML VIAL ONE (10:32)
[2024-12-04 10:45] VITALS: PULSE 65; RESP 12; O2SAT 98
[2024-12-04] MEDS: HYDROmorphone HCL 2 MG/ML VL/or syr IV PRN (10:59)
[2024-12-04 12:25] VITALS: BP 122/69; PULSE 55; RESP 11; O2SAT 94
== END 2024-12-04 12:45 | disposition home or self-care (01) ==
LOC: SUR 08:44
PROVIDERS: ATTEND Podiatrist
DX: S92.352A Displaced fracture of fifth metatarsal bone, left foot, initial encounter for closed fracture (principal); X58.XXXA Exposure to other specified factors, initial encounter; Y93.89 Activity, other specified; Y92.89 Other specified places as the place of occurrence of the external cause; Y99.8 Other external cause status
CPT/HCPCS: 28485; 36415; 80053; 81001; 85025; 85610; 85730; C1713; J1171; J2003; J2250; J2704; J3010; J3490